=== PATIENT | male | born 1995 | race Hispanic/Latino ===

== ENCOUNTER 2016-12-20 19:33 | Emergency (ER) ==
[2016-12-20 19:55] VITALS: BP 134/87
[2016-12-20] MEDS ORDERED: MOTRIN PO ONE (19:55)
[2016-12-20] MEDS ORDERED: TAMIFLU PO ONE (20:49)
--- NOTE | 2016-12-20 20:51 | PROVIDER DOCUMENTATION ---
HPI-EENT General - General Chief Complaint: Flu Symptoms Stated Complaint: FLU SX Time Seen by Provider: 12/20/16 20:49 Source: patient Allergies/Adverse Reactions: Patient Allergies Allergy/AdvReac Type Severity Reaction Status Date / Time No Known Allergies Allergy Verified 12/20/16 19:55 Home Medications: Home Medication List Medication Instructions Recorded Confirmed Last Taken Type Oseltamivir [Tamiflu] 75 mg PO BID #10 capsule 12/20/16 Unknown Rx - History of Present Illness-EENT General Nature of Presenting Problem: 21 yom c/o cough, sore throat, and fever. Symptoms started yesterday. EENT Location: denies: eye (R), eye (L), ear (R), ear (L), nose, mouth, throat, facial, dental, other Quality of Pain: reports: aching Severity: reports: mild Onset/Duration: reports: 24 hours ago Timing: reports: still present, getting worse Prearrival Treatment: Initiated over the counter meds Associated Symptoms: reports: fever, sore throat Other injuries?: denies: neck, head, back, other Locality of Occurance: Home Similar Symptoms Previously?: No Recently seen or treated by another doctor?: No - Eyes Eye Problem Symptoms: denies: eye pain, decrease vision, blurred vision, double vision, curtain, other, burning, itching, sensitivity to light, redness, matting , orbital swelling, eyelid swelling, foreign body sensation - Ears Ear Problem Symptoms: reports: none - Throat/Dental Throat/Dental Problem Symptoms: reports: sore throat Review of Systems - Adult - REVIEW OF SYSTEMS - ADULT Constitutional: reports: see HPI. denies: no symptoms reported, chills, fever, fatique, night sweats, weight gain, weight loss, other Eyes: reports: no symptoms reported. denies: see HPI, discharge, dry eyes, decreased vision, blurred vision, double vision, eye pain, redness, other Ears, Nose, Mouth & Throat: reports: see HPI, throat pain, throat swelling Cardiovascular: reports: no symptoms reported. denies: see HPI, chest pain, edema, heart murmur, irregular heart rate, orthopnea, palpitations, poor circulation, PND, syncope, other Respiratory: reports: see HPI, cough Gastrointestinal: reports: no symptoms reported. denies: see HPI, abdominal pain, hematemesis, constipation, diarrhea, difficulty swallowing, frequent heartburn, nausea, poor appetite, rectal bleeding, vomiting, other Genitourinary: reports: no symptoms reported. denies: see HPI, dysuria, discharge, frequency, flank pain, frequent UTI's, hematuria, hesitency, incontinence, urinary retention, urgency, other Musculoskeletal: reports: no symptoms reported. denies: see HPI, bone pain, back pain, frequent leg cramps, joint pain, joint swelling, muscle aches, muscle weakness, neck pain, other All Other Systems: Reviewed and Negative Past History - Adult - PAST MEDICAL HISTORY-ADULT Review of Records: reports: Old Records Reviewed, Nursing Assessment Review, Medications Reviewed, Social history reviewed & non-contributory. Physical Exam- EENT - Physical Exam EENT Initial Vital Signs Reviewed: Yes General Appearance: appears well, alert, no apparent distress Eye Exam: bilateral eye: normal inspection, PERRL, EOMI Ear Exam: bilateral ear: auricle normal, canal normal, TM normal Nasal Exam: discharge Throat Exam: pharynx swelling. negative: normal mouth inspection, pharynx normal, dental tenderness, excessive drooling, foreign body, mandibular swelling , maxillary swelling, pharynx tenderness, tongue swollen, tonsillar exudate, tonsillar swelling, trismus, uvula swelling, voice changes, other Neck: non-tender, full range of motion, supple, normal inspection. negative: Brudzinski's sign, carotid bruit, C-spine tenderness, limited range of motion, lymphadenopathy, meningismus, trachial deviation, tender lateral, tender midline , thyromegaly, other Respiratory: chest non-tender, lungs clear, normal breath sounds, no pleuratic chest pain, no respiratory distress, no accessory muscle use. negative: respiratory distress, decreased breath sounds, accessory muscle use, crackles, rales, rhonchi, stridor, wheezing, dull on percussion, prolonged expiration, pain on inspiration, plerual rub, retractions, splinting, decreased rate, increased rate, crepitus, other Cardiovascular: normal peripheral pulses, regular rate, rhythm, no edema, no gallop, no JVD, no murmur. negative: JVD, bradycardia, tachycardia, diastolic murmur, systolic murmur, gallop/S3, gallop/S4, extra beats, friction rub, irregularly irregular, PMI displaced laterally, other Abdominal Exam: normal bowel sounds, non tender, soft, no organomegaly, no pulsatile mass. negative: abdominal bruit, abnormal bowel sounds, distended, guarding, rigid, rebound, tenderness, hernia, mass, hepatomegaly, spleenomegaly , McBurney's point tenderness, Rose's sign, obturator sign, prominent aortic pulsations, psoas, Rovsing's sign, other Lymphatic: no adenopathy. negative: axilla node tender, cervical node tenderness, inguinal node tender, enlargement, striations, streaking, other Back Exam: normal inspection, no CVA tenderness, no vertebral tenderness. negative: CVA tenderness, decreased range of motion, ecchymosis, kyphosis, lordosis, muscle spasm, scoliosis, swelling, vertebral tenderness, other Extremity: normal range of motion, non-tender, normal gait, normal inspection, no pedal edema, no calf tenderness, normal capillary refill Integumentary: normal color, normal turgor, warm/dry Neurologic: grossly normal Psych/Mental Status: oriented x 3 Progress - PLAN OF CARE/RESULTS Progress/Plan/Lab Results: Laboratory Tests 12/20/16 19:57 Influenza A (Rapid) POSITIVE A Influenza B (Rapid) NEGATIVE Orders Category Date Time Status Flu [INFLUENZA SCREEN PL] Stat Lab 12/20/16 19:57 Completed Ibuprofen [Motrin] Med 12/20/16 19:55 Discontinued 800 mg PO NOW ONE Oseltamivir [Tamiflu] Med 12/20/16 20:49 Discontinued 75 mg PO NOW ONE Vital Signs Temp Pulse Resp BP Pulse Ox 12/20/16 19:50 100.7 F H 131 H 20 134/87 100 No Known Allergies Allergy (Verified 12/20/16 19:55) Oseltamivir [Tamiflu] 75 mg PO BID #10 capsule 12/20/16 Laboratory 12/20/16 19:57 Influenza A (Rapid) POSITIVE A Influenza B (Rapid) NEGATIVE Departure - Departure Time of Disposition Order: 20:49 DIAGNOSIS: Influenza A Disposition: HOME 01 Certified Medical Emergency: Emergent Condition: Stable Additional Instructions: Tylenol and ibuprofen for fever and body aches. ED Follow Up Instructions: You have been treated by a care provider in the Emergency Department. These instructions are being provided to you so you can have an understanding of how to care for yourself upon discharge. Upon discharge from the Emergency Department, you are responsible for making arrangements for follow-up care by a physician of your choice. Take all prescribed medications as directed. Return to the Emergency Department immediately for any new or worsening symptoms. You may call the Physician Referral phone number at [phone] to obtain a list of Physicians who are taking new patients. Prescriptions: Oseltamivir [Tamiflu] 75 mg PO BID #10 capsule Referrals: None,PCP [Primary Care Provider] - Rafaela Cazares MD [STAFF PHYSICIAN] - Forms: Return to School/Parent Work Instructions: Influenza, Adult, [id number], Oseltamivir capsules Attestation - Physician/ GROVER Attestation Patient care was provided by Advanced Practice Provider:: Yes Advanced Practice Provider:: Keshav Silva Advanced Practice Provider documentation review:: The Mid-level provider documentation, treatment plan and medical decision making was reviewed by the physician who agrees with all treatment and medical decision making by the P. Physician Attestation - Physician Attestation I, the provider, attest to the following statement:: Lee Chong Physician documentation Attestation:: This documentation recorded by the scribe accurately reflects the service I personally performed and the decisions made by me.
== END 2016-12-20 20:59 | disposition home or self-care (01) ==
LOC: P.ED 19:33
DX: J11.1 Influenza due to unidentified influenza virus with other respiratory manifestations (principal); R05 Cough; J02.9 Acute pharyngitis, unspecified; R50.9 Fever, unspecified; R22.1 Localized swelling, mass and lump, neck
CPT/HCPCS: 87804; 99283

== ENCOUNTER 2019-03-31 12:37 | Inpatient (IN) ==
[2019-03-31] MEDS ORDERED: NS 1,000 ML IV ONE ×2 (12:58→19:18)
[2019-03-31] MEDS ORDERED: ASPIRIN PO ONE (13:02)
[2019-03-31] MEDS ORDERED: NITROGLYCERIN SL ONE (13:02)
[2019-03-31] MEDS ORDERED: REGITINE IV ONE (13:02)
--- NOTE | 2019-03-31 13:03 | EKG Report ---
Test Performed on : 03/31/2019 12:47:24 PM Test Reason : CP Blood Pressure : / mmHG Vent. Rate : 161 BPM Atrial Rate : 161 BPM P-R Int : 124 ms QRS Dur : 096 ms QT Int : 320 ms P-R-T Axes : 067 119 025 degrees QTc Int : 523 ms Sinus tachycardia. Possible Lateral infarct , age undetermined Abnormal ECG No previous ECGs available Unconfirmed Result
[2019-03-31] MEDS ORDERED: ATIVAN IV ONE ×2 (13:05→13:41)
[2019-03-31 13:36] LABS: BASO# 0.07 X1000 (0.0-0.2); BASO% 0.5 % (0.0-0.8); EOS# 0.02 X1000 (0.0-0.7); EOS% 0.1 % (0.0-10.0); HEMATOCRIT 45.7 % (42.0-52.0); HEMOGLOBIN 15.6 g/dL (14.0-18.0); IMM GRAN# 0.17 X1000 (0.0-0.04); IMM GRAN% 1.2 % (0.0-0.5); LYMPH# 2.39 X1000 (1.2-3.4); MCH 29.3 PG (27-31); MCHC 34.1 g/dL (33-37); MCV 85.7 FL (81-99); MONO# 1.26 X1000 (0.11-0.59); MONO% 8.9 % (1.7-9.3); NEUT# 10.17 X1000 (1.4-6.5); NEUT% 72.3 % (42.2-75.2); PLT 322 X1000 (130-400); RBC 5.33 XMIL (4.7-6.1); RDW 13.3 % (11.5-14.5); WBC 14.08 X1000 (4.8-10.8)
[2019-03-31 13:39] LABS: INR 0.97; PROTIME 13.4 Seconds (11.0-16.0)
--- NOTE | 2019-03-31 13:41 | PROVIDER DOCUMENTATION ---
This chart was entered by Ro Ferraro Scribe, acting as scribe for Gayathri Mary MD. HPI-Chest Pain - General Chief Complaint: Chest Pain Stated Complaint: SOB / FAST HR Time Seen by Provider: 03/31/19 12:47 Source: patient Allergies/Adverse Reactions: Patient Allergies Allergy/AdvReac Type Severity Reaction Status Date / Time No Known Allergies Allergy Verified 12/20/16 19:55 Home Medications: Home Medication List Medication Instructions Recorded Confirmed Last Taken Type Oseltamivir [Tamiflu] 75 mg PO BID #10 capsule 12/20/16 Unknown Rx - History of Present Illness-CP Nature of Presenting Problem: 23yom c/o chest pain and sob with LUE numbness/tingling, dizziness, lightheadedness, nausea, and diarrhea just prior to arrival to the ED this morning. He reports that he consumed one gram of cocaine last night and fell asleep. He reports that when he awoke this morning, he took a sleeping pill. He reports that he began usage of cocaine four months ago. He denies family history of cardiac disease. He denies any medical problems. He denies taking any medications. He reports hx of anxiety and depression. He denies vomiting, fever, chills. Location: reports: central Chest Pain Radiation: reports: no radiation Quality of Pain: reports: aching Severity in ED: moderate Onset/Duration: just prior to arrival, this morning Timing: still present, constant Context/Activities at Onset: reports: sleep, other (drug use) Modifying Factors: improves with: nothing Associated Symptoms: reports: dizziness, nausea, shortness of breath. denies: fever/chills, vomiting Prior Chest Pain/Cardiac Workup: denies: heart attack Similar Symptoms Previously?: No Recently Seen Here or By Another Healthcare Provider: No Review of Systems - Adult - REVIEW OF SYSTEMS - ADULT Constitutional: denies: chills, fever Eyes: denies: discharge, dry eyes Ears, Nose, Mouth & Throat: denies: ear discharge, ear pain Cardiovascular: reports: chest pain, palpitations Respiratory: reports: shortness of breath. denies: cough Gastrointestinal: denies: abdominal pain, diarrhea, nausea, vomiting Genitourinary: denies: dysuria, hematuria Musculoskeletal: denies: back pain, muscle aches, muscle weakness Integumentary: reports: no symptoms reported Neurological: denies: dizziness/vertigo, headache/migraines Psychiatric: reports: no symptoms reported Endocrine: reports: no symptoms reported Hematologic/Lymphatic: reports: no symptoms reported Allergic/Immunologic: reports: no symptoms reported All Other Systems: Reviewed and Negative Past History - Adult - PAST MEDICAL HISTORY-ADULT Review of Records: reports: Old Records Reviewed, Nursing Assessment Review, Medications Reviewed - PRIOR SURGERIES/PROCEDURES Surgical/Procedure History: reports: none - IMMUNIZATION STATUS Childhood Immunizations: See Nurse Assessment Flu Vaccine: See Nurse Assessment - FAMILY HISTORY Family History: reviewed, not pertinent - SOCIAL HISTORY Smoking: non-smoker Substance Use: alcohol, cocaine Alcohol Use Frequency: occasionally Living Situation: family Physical Exam-General - PHYSICAL EXAM-ADULT Exam Limited by: morbid obesity Initial Vital Signs Reviewed: Yes - CONSTITUTIONAL General Appearance: alert, mild distress, obese, other (patient has dried white residue on his upper lip) - EYES Eyes: PERRL/EOMI, pink conjunctivae - HEAD, EARS, NOSE, MOUTH & THROAT HENMT: normocephalic/atraumatic, other (dry mucous membranes) - NECK Neck: non-tender, supple - RESPIRATORY Respiratory: lungs clear, normal breath sounds. negative: crackles, wheezing - CARDIOVASCULAR Cardiovascular: regular rate, rhythm, tachycardia. negative: bradycardia - GASTROINTESTINAL (ABDOMEN) Abdominal Exam: non tender, soft. negative: distended, guarding - MUSCULOSKELETAL Back Exam: normal inspection, no CVA tenderness, no vertebral tenderness Extremity: normal range of motion, non-tender, normal inspection, no pedal edema . negative: deformity, erythema - SKIN Integumentary: normal color, warm/dry - NEUROLOGIC Neurologic: grossly normal, no motor/sensory deficits - PSYCHIATRIC Psych/Mental Status: normal mood/affect, normal thought content, normal thought process, oriented x 3 - HEART Score HEART Score: History: Highly Suspicious HEART Score: ECG: Significant ST-Deviation HEART Score: Age: < or = 45 Years HEART Score: Risk Factors for Atherosclerotic Disease: 1 or 2 Risk Factors HEART Score: Troponin: < or = Normal Limit Total HEART Score:: 5 Progress - PLAN OF CARE/RESULTS Progress/Plan/Lab Results: Vital Signs - 8 hr 03/31/19 12:43 03/31/19 13:02 03/31/19 13:29 Temperature 97.4 F L Pulse Rate 166 H 144 H 144 H Respiratory Rate 22 19 20 Blood Pressure 139/89 148/85 O2 Sat by Pulse Oximetry 100 96 92 L 03/31/19 13:45 03/31/19 14:00 03/31/19 14:15 Temperature Pulse Rate 137 H 136 H 132 H Respiratory Rate 26 H 22 25 H Blood Pressure 130/77 146/74 149/87 O2 Sat by Pulse Oximetry 94 L 94 L 94 L 03/31/19 14:45 03/31/19 15:15 03/31/19 15:45 Temperature Pulse Rate 139 H 133 H 126 H Respiratory Rate 22 18 18 Blood Pressure 123/84 147/88 147/82 O2 Sat by Pulse Oximetry 94 L 94 L 97 03/31/19 16:15 Temperature Pulse Rate 131 H Respiratory Rate 23 Blood Pressure 141/85 O2 Sat by Pulse Oximetry 98 Laboratory Results - last 24 hr 03/31/19 03/31/19 03/31/19 12:51 12:51 12:51 WBC 14.08 H RBC 5.33 Hgb 15.6 Hct 45.7 MCV 85.7 MCH 29.3 MCHC 34.1 RDW Std Deviation 13.3 Plt Count 322 MPV 10.0 Immature Gran % (Auto) 1.2 H Neut % (Auto) 72.3 Lymph % (Auto) 17.0 L Worth % (Auto) 8.9 Eos % (Auto) 0.1 Baso % (Auto) 0.5 Immature Gran # (Auto) 0.17 H Neut # (Auto) 10.17 H Lymph # (Auto) 2.39 Worth # (Auto) 1.26 H Eos # (Auto) 0.02 Baso # (Auto) 0.07 PT INR PTT (Actin FS) Sodium 140 Potassium 3.9 Chloride 102 Carbon Dioxide 22 L Anion Gap 17 BUN 7 L Creatinine 0.8 Estimated GFR/1.73 m2 > 60 BUN/Creatinine Ratio 9 Glucose 117 H Calculated Osmolality 278 Calcium 9.6 Total Bilirubin 0.50 AST 104 H ALT 163 H Alkaline Phosphatase 108 Creatine Kinase 284 H Creatine Kinase Index 2.5 CK-MB (CK-2) 7.08 H Troponin T Vsp-L-Wcrsclcpneq Pept 73 Total Protein 8.5 H Albumin 5.2 H Globulin 3.0 Albumin/Globulin Ratio 2.0 Urine Opiates Screen Ur Oxycodone Screen Urine Methadone Screen U Propoxyphene Qual Ur Barbituates Screen Ur Tricyclics Screen Ur Phencyclidine Scrn Ur Amphetamines Screen U Methamphetamines Scrn U Benzodiazepines Scrn Urine Cocaine Screen U Cannabinoids Screen 03/31/19 03/31/19 03/31/19 12:51 12:51 13:35 WBC RBC Hgb Hct MCV MCH MCHC RDW Std Deviation Plt Count MPV Immature Gran % (Auto) Neut % (Auto) Lymph % (Auto) Worth % (Auto) Eos % (Auto) Baso % (Auto) Immature Gran # (Auto) Neut # (Auto) Lymph # (Auto) Worth # (Auto) Eos # (Auto) Baso # (Auto) PT 13.4 INR 0.97 PTT (Actin FS) 28.9 Sodium Potassium Chloride Carbon Dioxide Anion Gap BUN Creatinine Estimated GFR/1.73 m2 BUN/Creatinine Ratio Glucose Calculated Osmolality Calcium Total Bilirubin AST ALT Alkaline Phosphatase Creatine Kinase Creatine Kinase Index CK-MB (CK-2) Troponin T < 0.010 Zig-Y-Ldzwkrivzhy Pept Total Protein Albumin Globulin Albumin/Globulin Ratio Urine Opiates Screen NONE DETECTED Ur Oxycodone Screen NONE DETECTED Urine Methadone Screen NONE DETECTED U Propoxyphene Qual NONE DETECTED Ur Barbituates Screen NONE DETECTED Ur Tricyclics Screen PRESUMPTIVE POSITIVE A Ur Phencyclidine Scrn NONE DETECTED Ur Amphetamines Screen PRESUMPTIVE POSITIVE A U Methamphetamines Scrn PRESUMPTIVE POSITIVE A U Benzodiazepines Scrn NONE DETECTED Urine Cocaine Screen PRESUMPTIVE POSITIVE A U Cannabinoids Screen PRESUMPTIVE POSITIVE A Orders Category Date Time Status Cardiac Monitoring DIRECTED Care 03/31/19 12:57 Active Oxygen Therapy- ED Nursing DIRECTED Care 03/31/19 12:57 Active Saline Loc NOW Care 03/31/19 12:57 Active CHEST-2 VIEWS [RAD] Stat Exams 03/31/19 12:57 Completed CBC WITH ELECTRONIC DIFF [HEME] Stat Lab 03/31/19 12:51 Completed CK PROFILE [SP CHEM] Stat Lab 03/31/19 12:51 Completed CK PROFILE [SP CHEM] Stat Lab 03/31/19 16:27 Ordered COMPREHENSIVE METABOLIC PANEL [CHEM] Stat Lab 03/31/19 12:51 Completed PRO B-NATRIURETIC PEPTIDE Stat Lab 03/31/19 12:51 Completed PROTIME WITH INR [COAG] Stat Lab 03/31/19 12:51 Completed PTT [COAG] Stat Lab 03/31/19 12:51 Completed TROPONIN T Stat Lab 03/31/19 12:51 Completed TROPONIN T Stat Lab 03/31/19 16:27 Ordered URINE DRUG SCREEN PL Stat Lab 03/31/19 13:35 Completed 0.9% Sodium Chloride Inj [Ns] 1,000 ml Med 03/31/19 16:15 Active IV 50 mls/hr 0.9% Sodium Chloride Inj [Ns] 1,000 ml Med 03/31/19 12:58 Discontinued IV 999 mls/hr Aspirin Med 03/31/19 13:02 Discontinued 325 mg PO NOW ONE Lorazepam [Ativan] Med 03/31/19 13:05 Discontinued 1 mg IV NOW ONE Lorazepam [Ativan] Med 03/31/19 13:41 Discontinued 1 mg IV NOW ONE Lorazepam [Ativan] Med 03/31/19 16:01 Active 1 mg IV Q4H PRN PRN Nitroglycerin Sl [Nitroglycerin] Med 03/31/19 13:02 Discontinued 0.4 mg SL NOW ONE Phentolamine [Regitine] Med 03/31/19 13:02 Discontinued 1 mg IV NOW ONE CP/SOB/Palp >45 yrs of Age Stat Oth 03/31/19 12:56 Ordered EKG [EKG] Stat Ther 03/31/19 12:57 Draft EKG [EKG] Stat Ther 03/31/19 16:17 Ordered Transfer/Admit Order [TRANSFER] Routine Transfer 03/31/19 15:51 Ordered Result Diagrams: 03/31/19 12:51 03/31/19 12:51 - EKG 1 Time of EKG reading by physician:: 12:47 EKG Read and Signed by:: Gayathri Mary EKG Interpretation (*Must complete 3 of following elements*): Abnormal Rate: 161 Rhythm: Sinus tachycardia QRS: Q Waves present (in inferior lateral leads) ST Wave: non-specific ST changes Comments: No STEMI 2 Time of EKG reading by physician:: 16:20 EKG Read and Signed by:: Gayathri Mary EKG Interpretation (*Must complete 3 of following elements*): Abnormal Rate: 123 Rhythm: Sinus tachycardia QRS: Q Waves present (in inferior lateral leads) ST Wave: non-specific ST changes Prior EKG Comparison: unchanged from prior (completed today, 03/31/19) - XRAY 1 XRAY Study: Chest Impression: Normal (FINDINGS: The lungs are normally expanded and clear. Heart size and mediastinal contours are normal. No pneumothorax or pleural effusion. IMPRESSION: Negative exam.) - CONSULTS/PCP/HOSPITALIST Notification #1 *Consult/PCP/Hospitalist*: Dr. Dobson Time Discussed: 14:21 Consult Disposition: Admit Departure - Departure Date of Disposition Decision: 03/31/19 Time of Disposition Decision: 16:42 DIAGNOSIS: Substance abuse Chest pain Qualifiers: Chest pain type: unspecified Qualified Code(s): R07.9 - Chest pain, unspecified Cocaine overdose Qualifiers: Encounter type: initial encounter Injury intent: undetermined intent Qualified Code(s): T40.5X4A - Poisoning by cocaine, undetermined, initial encounter Disposition: ADMITTED INPATIENT 09 Certified Medical Emergency: Emergent Condition: Stable Additional Freetext Instructions: ED Follow Up Instructions: You have been treated by a care provider in the Emergency Department. These instructions are being provided to you so you can have an understanding of how to care for yourself upon discharge. Upon discharge from the Emergency Department, you are responsible for making arrangements for follow-up care by a physician of your choice. Take all prescribed medications as directed. Return to the Emergency Department immediately for any new or worsening symptoms. You may call the Physician Referral phone number at [phone] to obtain a list of Physicians who are taking new patients. Referrals and Follow-Ups: None,PCP [Primary Care Provider] - Discharge Education: Nonspecific Chest Pain, [id number], Finding Treatment for Addiction - Critical Care Note This patient required my direct & personal management of CC.: No Attestation - Physician/ GROVER Attestation Patient care was provided by Advanced Practice Provider:: No The physician spent face to face time with patient:: Yes Advanced Practice Provider documentation review:: Supervising physician onsite and consulted in the evaluation and care of this patient. The physician did have a face to face encounter with the patient. This chart was documented by the indicated scribe, (oR Ferraro Scribe) and accurately reflects the services I performed and decisions made by me, Gayathri Mary MD, as attested by the provider's signature.
[2019-03-31 13:57] LABS: AGAP 17; ALBUMIN 5.2 g/dL (3.5-5.0); ALKALINE PHOSPHATASE 108 U/L (32-122); BUN 7 mg/dL (8-22); CALCIUM 9.6 mg/dL (8.8-10.2); CHLORIDE 102 mmol/L (98-107); COSMO 278; CREATININE 0.8 mg/dL (0.7-1.2); ESTIMATED GFR > 60; GLUCOSE 117 mg/dL (70-104); GOT 104 U/L (10-34); GPT 163 U/L (10-44); POTASSIUM 3.9 mmol/L (3.5-5.1); SODIUM 140 mmol/L (136-145); TCO2 22 mmol/L (25-35); TOTAL PROTEIN 8.5 g/dL (6.3-8.3)
[2019-03-31 14:04] LABS: CK PROFILE 284 U/L (24-204)
--- NOTE | 2019-03-31 14:05 | Diag Imaging Result Doc PS360 ---
CHEST-2 VIEWS - 03/31/2019 INDICATION: Chest Pain COMPARISON: None FINDINGS: The lungs are normally expanded and clear. Heart size and mediastinal contours are normal. No pneumothorax or pleural effusion. IMPRESSION: Negative exam. Electronically signed by Pradeep Rincon 03/31/2019 2:03 PM
[2019-03-31 14:07] LABS: UR AMPHETAMINES QUAL PRESUMPTIVE POSITIVE (NONE DETECT); UR BARBITUATES QUAL NONE DETECTED (NONE DETECT); UR BENZODIAZEPIN QUAL NONE DETECTED (NONE DETECT); UR CANNABINOIDS QUAL PRESUMPTIVE POSITIVE (NONE DETECT); UR COCAINE QUAL PRESUMPTIVE POSITIVE (NONE DETECT); UR METHADONE QUAL NONE DETECTED (NONE DETECT); UR METHAMPHETAMINE QUAL PRESUMPTIVE POSITIVE (NONE DETECT); UR OPIATES QUAL NONE DETECTED (NONE DETECT); UR OXYCODONE QUAL NONE DETECTED (NONE DETECT); UR PCP QUAL NONE DETECTED (NONE DETECT); UR PROPOXYPHENE QUAL NONE DETECTED (NONE DETECT); UR TCA QUAL PRESUMPTIVE POSITIVE (NONE DETECT)
[2019-03-31 14:27] LABS: PTT 28.9 Seconds (22.3-41.8)
[2019-03-31 14:29] LABS: CK INDEX 2.5 (0.0-2.5); CK-MB 7.08 ng/mL (0.0-5.0)
[2019-03-31] MEDS ORDERED: ATIVAN IV PRN (16:01)
[2019-03-31] MEDS ORDERED: NS 1,000 ML IV SCH (16:15)
--- NOTE | 2019-03-31 16:33 | HISTORY AND PHYSICAL ---
CHIEF COMPLAINT: Chest pain and shortness of breath. HISTORY OF PRESENT ILLNESS: This is a 23-year-old gentleman with a history of cocaine use, who presents to the emergency room complaining of chest pain, shortness of breath, and fast heart rate after using cocaine. He did state he reports being at a club last night and snorting a white powder. He believed it was cocaine; he is not sure. He is not sure what time he used cocaine, but shortly about 30 minutes prior to coming to the emergency room he stated he had chest pain and shortness of breath. He does use cocaine as well as drink alcohol. He did state that he has never had this type of reaction. PAST MEDICAL HISTORY: Denies. PAST SURGICAL HISTORY: Denies. SOCIAL HISTORY: He does not smoke tobacco. He drinks alcohol and uses cocaine and other illicit substances. ALLERGIES: No known drug allergies. HOME MEDICATIONS: None. REVIEW OF SYSTEMS: Discussed with the patient with pertinent positives stated in the HPI. He denied any syncope; any vomiting, diarrhea, constipation; black or bloody vomitus or stools; a productive cough, fever, chills; any hematuria, dysuria, frequency, or urgency. PHYSICAL EXAMINATION: GENERAL: This is a 23-year-old gentleman who is lying on the stretcher in the emergency room in no distress. VITAL SIGNS: Blood pressure 146/74, heart rate of 136, respirations are 22, temperature is 97.4 degrees with room air saturations 94%. EYES: Pupils are equal, round, and react to light. EOMs are intact. Sclerae are anicteric. HEENT: Head is normocephalic, atraumatic. Mucous membranes are dry. NECK: Supple with trachea midline. CARDIOVASCULAR: Regular rate and rhythm. S1 and S2 appreciated. He has no lower extremity edema. Peripheral pulses are palpable x4 extremities. Calves are nontender bilateral. PULMONARY: Breath sounds are clear with no increased work of breathing noted. Chest rises and falls and symmetric with respiration. GASTROINTESTINAL: Soft, nontender, nondistended with bowel sounds in all 4 quadrants. NEUROLOGIC: He is alert and oriented x3. SKIN: Warm and dry. LABS: WBC is 14 with hemoglobin 15.6, hematocrit 45.7, and platelets of 322,000. Sodium 140, potassium 3.9, BUN 7, creatinine 0.8, with glucose of 117. AST is 104, ALT is 163 with a CPK of 284. Troponin is negative. Urine drug screen is presumptive positive for tricyclics, amphetamines, methamphetamines, cocaine and cannabinoids. Chest x-ray reveals a negative exam. EKG reveals sinus tachycardia at a rate of 161. ASSESSMENT AND PLAN: 1. Cocaine and polysubstance abuse in a patient with a urine drug screen presumptive positive for cocaine, cannabinoids, methamphetamines, amphetamines, and tricyclics. 2. Hypertension. 3. Tachycardia. 4. Chest pain secondary to #1. PLAN: The patient will be admitted to ICU. He will be placed on telemetry. We will rehydrate, We will use Ativan IV for anxiety. We will trend troponins and cardiac enzymes. Watch for any signs of withdrawal as we are not sure what he takes or exactly how [*] For DVT prophylaxis, we will use SCDs and GI prophylaxis with Prilosec. Further treatments pending hospital course. Dictated by ROSA Crocker for Romeo Dobson MD cc: ROSA Crocker MD
[2019-03-31 17:22] LABS: CK INDEX 2.3 (0.0-2.5); CK-MB 6.17 ng/mL (0.0-5.0)
--- NOTE | 2019-03-31 17:51 | EKG Report ---
Test Performed on : 03/31/2019 4:20:22 PM Test Reason : CP EKG #2 Blood Pressure : / mmHG Vent. Rate : 123 BPM Atrial Rate : 123 BPM P-R Int : 146 ms QRS Dur : 110 ms QT Int : 316 ms P-R-T Axes : 066 095 002 degrees QTc Int : 452 ms Sinus tachycardia. Possible Lateral infarct (cited on or before 31-MAR-2019) Possible Inferior infarct , age undetermined Abnormal ECG When compared with ECG of 31-MAR-2019 12:47, (Unconfirmed) No significant change was found Unconfirmed Result
[2019-03-31] MEDS ORDERED: LABETALOL IV PRN (18:34)
[2019-03-31] MEDS ORDERED: VANCOMYCIN IV PER PHARMACY MISC SCH (18:45)
[2019-03-31] MEDS: ZOSYN 3.375 GM in NS 50 ML IV SCH (19:03)
[2019-03-31] MEDS ORDERED: [UNRECOGNIZED DRUG - OTHER] IV ONE (20:00)
[2019-03-31] MEDS ORDERED: VANCOMYCIN IV ONE (20:00)
[2019-03-31 23:04] LABS: CK INDEX 1.9 (0.0-2.5); CK-MB 5.97 ng/mL (0.0-5.0)
[2019-04-01] MEDS: ZOSYN 3.375 GM in NS 50 ML IV SCH ×2 (00:10→07:07)
[2019-04-01 05:50] LABS: HEMATOCRIT 42.2 % (42.0-52.0); HEMOGLOBIN 14.1 g/dL (14.0-18.0); MCH 29.7 PG (27-31); MCHC 33.4 g/dL (33-37); MCV 88.8 FL (81-99); MPV 9.8 FL (7.4-10.4); RBC 4.75 XMIL (4.7-6.1); RDW 13.4 % (11.5-14.5); WBC 8.66 X1000 (4.8-10.8)
[2019-04-01 06:05] LABS: AGAP 10; BUN 7 mg/dL (8-22); CALCIUM 8.9 mg/dL (8.8-10.2); CHLORIDE 105 mmol/L (98-107); COSMO 273; CREATININE 0.6 mg/dL (0.7-1.2); ESTIMATED GFR > 60; GLUCOSE 95 mg/dL (70-104); POTASSIUM 3.7 mmol/L (3.5-5.1); SODIUM 138 mmol/L (136-145); TCO2 23 mmol/L (25-35)
[2019-04-01] MEDS: VANCOMYCIN 2,000 MG in NS 500 ML IV SCH ×2 (09:08→11:13)
[2019-04-01 10:00] VITALS: BP 138/62
--- NOTE | 2019-04-01 21:07 | DISCHARGE SUMMARY ---
ADMISSION DATE: 03/31/2019 DISCHARGE DATE: 04/01/2019 PRIMARY CARE PHYSICIAN: None. ADMISSION DIAGNOSES: 1. Cocaine and polysubstance abuse in a patient with a urine drug screen presumptive positive for cocaine, cannabinoids, methamphetamines, amphetamines, and tricyclics. 2. Hypertension. 3. Tachycardia. 4. Chest pain secondary to #1. DISCHARGE DIAGNOSIS: 1. Cocaine and polysubstance abuse in a patient with a urine drug screen presumptive positive for cocaine, cannabinoids, methamphetamines, amphetamines, and tricyclics. 2. Hypertension. 3. Tachycardia, improved with heart rate currently 106. 4. Chest pain secondary to #1. SUMMARY OF FINDINGS: This is a 23-year-old male who presented to the emergency room with complaints of chest pain, shortness of breath, and a fast heart rate after using cocaine. He stated that he had been at a club the night before snorting a white powder, he believed it to be cocaine, but was not sure. He was not sure what time he used it, but shortly, 30 minutes later, came to the emergency room stating that he was having chest pain and shortness of breath. He uses cocaine and drinks alcohol, but states that he has never had this type of reaction. He was admitted to the Intensive Care Unit and placed on telemetry. He was hydrated and given Ativan IV for anxiety. Trended his cardiac enzymes and monitored for signs and symptoms of withdrawal. His cardiac enzymes, troponins have all been negative, he did have a little small bump in his creatine kinase and CK-MB, which is probably like a rhabdomyolysis effect from the drugs. His liver enzymes were also elevated with an AST of 104 and ALT of 163 when he arrived. His electrolytes have returned to normal and it is now felt that he can safely be discharged home. He has been instructed on the perils of using drugs and alcohol and that cessation is in his best interest and he verbalized understanding. DISCHARGE MEDICATIONS: NONE. FOLLOWUP: He will need to obtain a primary care physician. We can give him the physician referral line to obtain a primary care physician. TIME SPENT: 33 minutes. Dictated by ROSA Alfaro for Alexander Johnson MD Addendum: Patient seen and examined by myself. Agree with ROSA note. It reflects my assessment and plan. Patient is being discharged in stable condition to home. cc: ROSA Alfaro MD MTDD
--- NOTE | 2019-04-03 14:25 | HISTORY AND PHYSICAL ---
ADDENDUM: Patient seen and examined myself. Full note dictated and discussed with nurse practitioner. Patient came to the hospital initially with chest pain and shortness of breath. Unfortunately, he has been using cocaine and I believe methamphetamines. His drug screen positive for cocaine, cannabinoids, methamphetamine, tricyclics. We will admit him to the hospital, follow his blood pressures, rule out OK. Discussed with patient the perils of polysubstance use and abuse and we will follow. cc: Romeo Dosbon MD
== END 2019-04-01 11:39 | disposition home or self-care (01) | DRG 897 ==
LOC: P.ED 12:37 → P.ICU 16:27 → SUATTDRO 16:27
PROVIDERS: ATTEND Internal Medicine
CPT/HCPCS: 71020; 71046; 80048; 80053; 80104; 80301; 80305; 82550; 82553; 83880; 84484; 85025; 85027; 85610; 85730; 87040; 93005; A9270; G0431; G0434; G0477; J2060; J2543; J3370; J7030; J7040